=== PATIENT | male | born 1950 | race Caucasian/White ===

== ENCOUNTER → 2022-08-28 08:15 | Outpatient (BNVA) | payer OTHER, SELFPAY | PROVIDERS: PCP Family Medicine; Visit Provider Physician Assistant | DX: S82.51XA Displaced fracture of medial malleolus of right tibia, initial encounter for closed fracture (principal); W20.8XXA Other cause of strike by thrown, projected or falling object, initial encounter | CPT/HCPCS: 73610; 73630; 99203 ==

== ENCOUNTER 2022-09-04 14:50 | Outpatient (REF) | payer OTHER, SELFPAY ==
--- NOTE | ~2022-09-04 | XR_ITS ---
EXAMINATION: XR ANKLE, RIGHT CLINICAL INFORMATION: Fracture COMPARISON: Previous x-ray 08/28/2022 TECHNIQUE: AP, lateral, and mortise views of the right ankle. FINDINGS: There is a minimally displaced transverse fracture of the medial malleolus. This does not appear appreciably changed from 05/07/2023 exam. No other fracture. The ankle mortise is normal. There is adjacent soft tissue swelling. Small plantar calcaneal spur. XR/XR ankle RT min 3V IMPRESSION: No change in the minimally displaced transverse fracture of the medial malleolus.
== END 2022-09-04 14:51 | disposition home or self-care (01) ==
LOC: HO.HOSX 14:50
PROVIDERS: Visit Provider Physician Assistant
DX: S82.51XA Displaced fracture of medial malleolus of right tibia, initial encounter for closed fracture (principal)
CPT/HCPCS: 29405; 73610; 99202

== ENCOUNTER 2022-09-09 08:39 | Outpatient (REF) | payer OTHER, SELFPAY ==
--- NOTE | ~2022-09-09 | XR_ITS ---
EXAMINATION: XR ANKLE, RIGHT CLINICAL INFORMATION: Fracture COMPARISON: Previous x-ray 08/28/2022 TECHNIQUE: AP, lateral, and mortise views of the right ankle. FINDINGS: There is a transverse displaced fracture of the medial malleolus. This appears unchanged. No other fracture. The ankle mortise is normal. There is medial soft tissue swelling. There is an ankle joint effusion. There is faint soft tissue arterial calcification. XR/XR ankle RT min 3V IMPRESSION: Transverse displaced medial malleolar fracture.
== END 2022-09-09 08:40 | disposition home or self-care (01) ==
LOC: HO.HOSX 08:39
PROVIDERS: Visit Provider Physician Assistant
DX: S82.51XA Displaced fracture of medial malleolus of right tibia, initial encounter for closed fracture (principal)
CPT/HCPCS: 73610; 99212

== ENCOUNTER 2022-09-11 13:23 | Day surgery (SDC) | payer OTHER, SELFPAY ==
--- NOTE | 2022-09-10 08:46 | HO.ANESPROP2 ---
HPI - Anesthesia Eval Consult details Narrative: 72yo M for Right Ankle Fracture ORIF [facility] Active Problems Active Problems: All Active Problems (Updated 09/09/22 @ 08:48 by HELEN La) Displaced fracture of medial malleolus of right tibia (Acute) Past Medical History Medical History High cholesterol Surgical History Surgical History History of surgery on lower extremity Social History Social History Patient Tobacco Use Status: Former Tobacco user Quit Date: 16 years Current occupational status: retired [email or web address] Allergies Allergy/AdvReac Type Severity Reaction Status Date / Time No Known Allergies Allergy Verified 09/13/22 10:15 [No Known Allergies*] Home Medications Medication Instructions Recorded Confirmed Last Taken Type alprazolam 0.5 mg tablet 0.5 mg PO DAILY PRN Anxiety 09/09/22 09/11/22 Unknown History atorvastatin 20 mg tablet 20 mg PO DAILY 09/09/22 09/11/22 Unknown History mirtazapine 30 mg tablet 30 mg PO BEDTIME 09/09/22 09/11/22 Unknown History omeprazole 20 mg capsule,delayed 20 mg PO DAILY 09/09/22 09/11/22 Unknown History release Exam Exam Date and Time: September 10, 2022 0846 Assessment and Plan Assessment Anesthesia Assessment: Chart Reviewed
[2022-09-11] VITALS (8 sets, daily range): BP systolic 154–179; BP diastolic 76–88; PULSE 73–84; RESP 14–18; TEMP 36.1–36.8; O2SAT 93–98; BMI 25.8
--- NOTE | ~2022-09-11 | FL_ITS ---
EXAMINATION: XR FLUOROSCOPY WITH IMAGES CLINICAL INFORMATION: Medial malleoli fracture reduction. COMPARISON: Radiographs right ankle 09/09/2022 TECHNIQUE: Fluoroscopy Supervised By: Dr. Daljit Mares. Fluoroscopy Time: 0.1 minutes. Cumulative Dose: 0.35 mGy. Images: 1. FINDINGS: Medial malleolar fracture is reduced with screw. Hardware intact. There is near-anatomic alignment on this single projection. The ankle mortise appears symmetric. No joint narrowing. FL/FL guidance in OR IMPRESSION: Fluoroscopy for open reduction internal fixation medial malleolar fracture.
[2022-09-11] MEDS: Lactated Ringers 1,000 ML 100 ML IVCONT (14:03)
--- NOTE | 2022-09-11 14:55 | P.CONAN_ITS ---
[facility] Active Problems Active Problems: All Active Problems (Updated 09/09/22 @ 08:48 by Kenna Wheat [facility]) Displaced fracture of medial malleolus of right tibia (Acute) Past Medical History Medical History High cholesterol Surgical History Surgical History History of surgery on lower extremity Social History Social History Patient Tobacco Use Status: Former Tobacco user Quit Date: 16 years Use of substances other than those prescribed or required for medical reasons: Yes Are you DNR?: No Advance Directives: No Advance Directives Information Provided: Yes Current occupational status: retired [employer] Allergies Allergy/AdvReac Type Severity Reaction Status Date / Time No Known Allergies Allergy Verified 09/09/22 08:47 [No Known Allergies*] Active Medications: Current Medications Lactated Ringer's (Lr) 1,000 mls @ 100 mls/hr IVCONT .Q10H [facility] Last Admin: 09/11/22 14:03 Dose: 100 mls/hr Cefazolin Sodium/Dextrose (Ancef) 2 gm in 50 mls @ 100 mls/hr IV POSTOP [facility] Home Medications Medication Instructions Recorded Confirmed Last Taken Type alprazolam 0.5 mg tablet 0.5 mg PO DAILY PRN Anxiety 09/09/22 09/11/22 Unknown History atorvastatin 20 mg tablet 20 mg PO DAILY 09/09/22 09/11/22 Unknown History mirtazapine 30 mg tablet 30 mg PO BEDTIME 09/09/22 09/11/22 Unknown History omeprazole 20 mg capsule,delayed 20 mg PO DAILY 09/09/22 09/11/22 Unknown History release Exam Exam Date and Time: September 11, 2022 1455 Height,Weight and Vital Signs: Height 5 ft 6 in Weight 72.575 kg Last Vital Signs Temp 98.2 F 09/11/22 13:54 Pulse 84 09/11/22 13:54 Resp 18 09/11/22 13:54 BP 154/84 H 09/11/22 13:54 Pulse Ox 96 09/11/22 13:54 O2 Del Method Room Air 09/11/22 13:54 Airway Mallampati Class: II TM Dist: >3cm Neck ROM: Full Denture: Upper and Lower Heart: RRR Lungs: CTA Assessment and Plan Final Anesthetic Review ASA Class: II Final Preanesthetic Review: Meds/Allgs Chart Reviewed, Consent Obtained/Reviewed and Anes Risks/Benef Reviewed Patient Risk: Low Procedure Risk: Low Anesthetic Plan Anesthetic Plan: GA Disposition: Standard PACU
--- NOTE | 2022-09-11 15:10 | P.CONAN_ITS ---
[facility] Active Problems Active Problems: All Active Problems (Updated 09/09/22 @ 08:48 by Kenna Wheat [facility]) Displaced fracture of medial malleolus of right tibia (Acute) Past Medical History Medical History High cholesterol Family History Family history of problems with anesthesia: No Surgical History Surgical History History of surgery on lower extremity History of Problems with Anesthesia: No Social History Social History Patient Tobacco Use Status: Former Tobacco user Quit Date: 16 years Use of substances other than those prescribed or required for medical reasons: Yes Are you DNR?: No Advance Directives: No Advance Directives Information Provided: Yes Current occupational status: retired [employer] Allergies Allergy/AdvReac Type Severity Reaction Status Date / Time No Known Allergies Allergy Verified 09/09/22 08:47 [No Known Allergies*] Active Medications: Current Medications Lactated Ringer's (Lr) 1,000 mls @ 100 mls/hr IVCONT .Q10H [facility] Last Admin: 09/11/22 14:03 Dose: 100 mls/hr Cefazolin Sodium/Dextrose (Ancef) 2 gm in 50 mls @ 100 mls/hr IV POSTOP [facility] Home Medications Medication Instructions Recorded Confirmed Last Taken Type alprazolam 0.5 mg tablet 0.5 mg PO DAILY PRN Anxiety 09/09/22 09/11/22 Unknown History atorvastatin 20 mg tablet 20 mg PO DAILY 09/09/22 09/11/22 Unknown History mirtazapine 30 mg tablet 30 mg PO BEDTIME 09/09/22 09/11/22 Unknown History omeprazole 20 mg capsule,delayed 20 mg PO DAILY 09/09/22 09/11/22 Unknown History release Exam Exam Date and Time: September 11, 2022 1510 Height,Weight and Vital Signs: Height 5 ft 6 in Weight 72.575 kg Last Vital Signs Temp 98.2 F 09/11/22 13:54 Pulse 84 09/11/22 13:54 Resp 18 09/11/22 13:54 BP 154/84 H 09/11/22 13:54 Pulse Ox 96 09/11/22 13:54 O2 Del Method Room Air 09/11/22 13:54 Airway Mallampati Class: II TM Dist: >3cm Neck ROM: Full Denture: Upper and Lower Heart: RRR Lungs: CTA Assessment and Plan Final Anesthetic Review Family History of Problems with Anesthesia: No History of Problems with Anesthesia: No NPO: Yes ASA Class: II and Emergency Final Preanesthetic Review: Meds/Allgs Chart Reviewed, Consent Obtained/Reviewed and Anes Risks/Benef Reviewed Patient Risk: Low Procedure Risk: Low Anesthetic Plan Anesthetic Plan: GA Disposition: Standard PACU
--- NOTE | 2022-09-11 15:33 | MHC.SHP ---
Pre-Procedural Eval Section A Date of Service: 09/11/22 The patient is an INPATIENT: No Changes since office visit: No Cold of Flu in the past 2 weeks, No New Medical Problems, No Changes in Medication and No Patient answered all questions The History & Physical has been completed within 30 days and I have reviewed it.: Yes Section B Chief Complaint: Displaced fracture of medial malleolus of right ti Allergies: Allergies Allergy/AdvReac Type Severity Reaction Status Date / Time No Known Allergies Allergy Verified 09/09/22 08:47 [No Known Allergies*] Plan I have reviewed the history and physical and performed a pertinent physical examination on my patient. No changes have occurred unless specified. Time Spent With Patient Time: Total time managing care of this patient today ____ minutes.
--- NOTE | 2022-09-11 17:01 | P.BOP_ITS ---
Brief Operative Note Date of Service: 09/11/22 Pre-op diagnosis: Right medial malleolus ankle fracture Post-op diagnosis: same Procedure: ORIF right medial mal Implants: [place] 4.0 cannulated parttially threaded cancellous screws x 2 Surgeon: Daljit Mares MD Anesthesia: GETA, GLMA and local Was an Cork Tipper used for this Procedure?: No Estimated blood loss (mL): 5 Tourniquet time (min): 20 IV fluids (mL): 800 Pathology: none sent Condition: stable Disposition: PACU
[2022-09-11] MEDS: Acetaminophen 1,000 MG/100 ML PIGGYBACK 400 MG IV (17:16)
--- NOTE | 2022-09-17 07:31 | P.OP_ITS ---
Operative Note Operative Note Date of Service: 09/17/22 Narrative: Date of Service: 09/11/22 Pre-op diagnosis: Right medial malleolus ankle fracture Post-op diagnosis: same Procedure: ORIF right medial mal Implants: [place] 4.0 cannulated parttially threaded cancellous screws x 2 Surgeon: Daljit Mares MD Anesthesia: GETA, GLMA and local Was an Qa Architect used for this Procedure?: No Estimated blood loss (mL): 5 Tourniquet time (min): 20 IV fluids (mL): 800 Pathology: none sent Condition: stable Disposition: PACU Procedure in detail: Patient was brought to the operating room and placed supine on the operative table. All bony prominences were well padded and a time-out was called to identify proper site proper procedure proper surgeon. IV antibiotics per weight were administered. I began by exsanguinating limb is slightly tourniquet to 300 mm Hg. I then made a standard curvilinear incision over the medial malleolus.Full-thickness skin flaps were developed. THe fracture was irrigated and cleaned and then, using a sharp tenaculum, the fracture was reduced. 2 threaded K-wires were then placed from distal to proximal and perpendicular to the fracture. Biplanar fluoroscopy was used to confirm positioning and then they were overdrilled and 2 40 mm 4.0 partially-threaded cannulated cancellous screws were placed across the fracture. I was satisfied with the position and the fracture reduction based on biplanar fluoroscopy. This syndesmosis was tested using external rotation test and was found to be stable. Therefore all instrumentation was removed and copious irrigation was performed. Absorbable suture and jaun were used for closure and the patient was placed into sterile dressings and a well-padded posterior splint. Tourniquet was let down and the patient was extubated brought to recovery room in stable condition there were no known complications.
== END 2022-09-11 18:12 | disposition home or self-care (01) ==
LOC: HO.SSS 13:24
PROVIDERS: PCP Family Medicine; Visit Provider Orthopaedic Surgery
PROC: (CPT 27766; principal; 2022-09-11 16:10)
DX: S82.51XA Displaced fracture of medial malleolus of right tibia, initial encounter for closed fracture (principal); M25.571 Pain in right ankle and joints of right foot; W22.8XXA Striking against or struck by other objects, initial encounter; Y93.9 Activity, unspecified; Y92.69 Other specified industrial and construction area as the place of occurrence of the external cause; Y99.8 Other external cause status; E78.00 Pure hypercholesterolemia, unspecified; Z87.891 Personal history of nicotine dependence; Z79.899 Other long term (current) drug therapy
CPT/HCPCS: 27766; C1713; J0690; J1100; J2250; J2405; J2795; J3010

== ENCOUNTER → 2022-09-13 10:03 | Outpatient (BNVA) | payer OTHER, SELFPAY | PROVIDERS: PCP Family Medicine; Visit Provider Physician Assistant | DX: Z13.89 Encounter for screening for other disorder (principal) ==

== ENCOUNTER 2022-09-19 10:18 | Outpatient (REF) | payer OTHER, SELFPAY ==
--- NOTE | ~2022-09-19 | XR_ITS ---
EXAMINATION: XR ANKLE, RIGHT CLINICAL INFORMATION: Fracture COMPARISON: Previous x-ray and fluoroscopy August 2022 TECHNIQUE: AP, lateral, and mortise views of the right ankle. FINDINGS: There are 2 screws transfixing the medial malleolar fracture. Alignment is unchanged. No other fracture is seen. The ankle normal. There are overlying jaun. XR/XR ankle RT min 3V IMPRESSION: ORIF medial malleolar fracture.
== END 2022-09-19 10:19 | disposition home or self-care (01) ==
LOC: HO.HOSX 10:18
PROVIDERS: Visit Provider Physician Assistant
DX: S82.51XD Displaced fracture of medial malleolus of right tibia, subsequent encounter for closed fracture with routine healing (principal); X58.XXXD Exposure to other specified factors, subsequent encounter; Z98.890 Other specified postprocedural states
CPT/HCPCS: 29405; 73610

== ENCOUNTER 2022-10-18 07:28 | Outpatient (REF) | payer OTHER, SELFPAY ==
--- NOTE | ~2022-10-18 | XR_ITS ---
EXAMINATION: XR ANKLE, RIGHT CLINICAL INFORMATION: Right ankle pain COMPARISON: 09/19/2022 TECHNIQUE: AP, lateral, and mortise views of the right ankle. FINDINGS: Patient is status post placement of 2 compression screws is transfixing fracture of the medial malleolus. There is osteopenia seen surrounding sclerosis medially fragments are anatomically aligned. Ankle mortise is preserved. No other fractures are identified. XR/XR ankle RT min 3V IMPRESSION: ORIF in place with demineralization seen medially
== END 2022-10-18 07:29 | disposition home or self-care (01) ==
LOC: HO.HOSX 07:28
PROVIDERS: Visit Provider Physician Assistant
DX: S82.51XD Displaced fracture of medial malleolus of right tibia, subsequent encounter for closed fracture with routine healing (principal)
CPT/HCPCS: 73610

== ENCOUNTER → 2022-11-01 11:15 | Outpatient (BNVA) | payer OTHER, MEDICARE, SELFPAY | PROVIDERS: PCP Family Medicine; Visit Provider Physician Assistant ==

== ENCOUNTER 2022-11-25 11:09 | Outpatient (REF) | payer OTHER, SELFPAY ==
--- NOTE | ~2022-11-25 | XR_ITS ---
EXAMINATION: XR ANKLE, RIGHT CLINICAL INFORMATION: Pain COMPARISON: 11/17/2022 TECHNIQUE: AP, lateral, and mortise views of the right ankle. FINDINGS: 2 cortical screws are again seen to the medial malleolus. No evidence for hardware failure. The previously noted medial malleolus fracture is less discrete consistent with progressive interval healing. Mild soft tissue swelling. XR/XR ankle RT min 3V IMPRESSION: Progressive interval healing of the medial malleolus fracture with [address]. No evidence for hardware failure.
== END 2022-11-25 11:10 | disposition home or self-care (01) ==
LOC: HO.HOSX 11:09
PROVIDERS: Visit Provider Physician Assistant
DX: S82.51XD Displaced fracture of medial malleolus of right tibia, subsequent encounter for closed fracture with routine healing (principal); X58.XXXD Exposure to other specified factors, subsequent encounter
CPT/HCPCS: 73610

== ENCOUNTER 2022-11-25 13:06 | Outpatient (AMB) | payer OTHER, SELFPAY ==
--- NOTE | 2022-11-25 13:09 | MHC.OFFVIS ---
Intake Vital Signs 11/25/22 13:16 Height 5 ft 6 in Weight 160 lb BMI 25.8 Intake Visit Reasons: OV - RT ankle ORIF, 09/11/22 NE Intake Note: Bulmaro is a 72 year old male who presents today for a follow up s/p RT ankle ORIF on 09/11/22 NE. Patient reports some soreness when he walks with the boot. He states PT is going well. Denies numbness and tingling. Allergies No Known Allergies [No Known Allergies*] Allergy (Verified 11/25/22 13:09) HPI OV - RT ankle ORIF, 09/11/22 NE HPI Details 72-year-old male who presents in the office today 2 months status post right ankle medial malleolus ORIF, which was performed on 09/11/[address] Mares. The patient reports some soreness when ambulating with the boot. He confirms participating in physical therapy and states it is going well. He denies numbness or tingling. PFSH Medical History High cholesterol Surgical History History of surgery on lower extremity Social History Patient Tobacco Use Status: Former Tobacco user Quit Date: 16 years Current occupational status: retired Review of Systems Const All systems reviewed & are unremarkable except as noted in HPI and below Physical Exam Vital Signs: BMI result Body Mass Index 25.8 Const General: cooperative and no acute distress Orientation/consciousness: patient oriented x3 Resp Effort & Inspection: normal respiratory effort and able to speak in complete sentences Cardio Peripheral pulses: Peripheral pulses 2+ throughout Neuro General: patient oriented x3 Extrem Other: Right ankle: Normal to inspection. No ecchymosis, erythema, or edema. Full ankle ROM in all planes without any deficits. Negative anterior drawer. Sensation intact. Pedal pulse intact. Psych Mental Status: mental status grossly normal Assessment & Plan Assessment & Plan (1) Displaced fracture of medial malleolus of right tibia: Comment: right ankle medial malleolus ORIF 09/11/2022 NE Code(s): S82.51XA - Displaced fracture of medial malleolus of right tibia, initial encounter for closed fracture Plan Mr. Dailey is a 72-year-old male who presents in the office today 2 months status post right ankle medial malleolus ORIF, which was performed on 09/11/[address] Mares. The patient reports some soreness when ambulating with the boot. He confirms participating in physical therapy and states it is going well. He denies numbness or tingling. The patient will begin to wean out of boot at this time. He will continue to work with physical therapy on ROM and strengthening. He is anxious to return to work. 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 Follow up will be in 3 weeks, or sooner if needed. X-rays of the right ankle which were obtained while in the office today and were reviewed by me, Raquel Hart PA-C, revealed routine healing with intact orthopedic hardware medial malleolus right ankle. Orders: Orders XR ankle RT min 3V Today M25.579 - Pain in unspecified ankle and joints of unspecified foot Patient Instructions: Scribed for Raquel Hart PA-C by Hiwot Foote medical records clerk, on 11/25/2022 at 1:09 pm, EST. Your attestation Coding Level of Care Code Global (28068) Diagnoses Displaced fracture of medial malleolus of right tibia S82.51XA
[2022-11-25 13:16] VITALS: BMI 25.8
== END 2022-11-25 13:46 | disposition home or self-care (01) ==
PROVIDERS: PCP Family Medicine; Visit Provider Physician Assistant
DX: S82.51XA Displaced fracture of medial malleolus of right tibia, initial encounter for closed fracture (principal)
CPT/HCPCS: 99024

== ENCOUNTER 2022-12-16 07:00 | Outpatient (RCR) | payer OTHER, MEDICARE, SELFPAY ==
--- NOTE | 2022-12-16 09:13 | MHC.PT.OD ---
[facility] [place] [facility] [place] [facility] [place] [facility] [address] Tom Fuchs [address] [phone] F: [phone] F: [phone] F: [phone] F: [phone] Physical Therapy Daily Note Diagnosis: S82.51XA Displaced fracture of the medial malleolus of the right tibia, initial encounter for closed fracture, DOS 09/11/22 ROM, gentle strength, proprioceptive training signed by Queta Flores, date of script 10/18/22 Date of Surgery: 09/11/22 Date of Evaluation: 11/01/22 Date of Treatment: 12/16/22 Treatments to Date: Cancellations to Date: No Shows to Date: Authorized Visits: 12 Insurance End Date: Precautions/ Contraindications:WBAT R LE in boot, must have boot for weight-bearing Pre op: Displaces fracture of medial malleolus, closed fracture Subjective: Pt to see ortho tomorrow for follow up, reports he walked 1.5 miles with dog, 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 Pain Score and Location: 0 Objective Flowsheet: Tests & Measures Exercises Seated SCI-FIT bike level twin peaks program level 5.0 x 10 minutes Wobble board weight shifts laterally, fwd/bkwd, x 2 sets 10R, BOSU board blue side up x 2 sets 10R fwd and lateral step-ups x 2 sets 10R, step-down x 2 sets 10R with R LE on the BOSU, fwd step down from BOSU x 2 sets 10R, wobble board weight shifts fwd/bkwd x 2 sets 10R, x 2 minutes each direction, review of 4 way ankle hip, seated ankle DF stretch x 10 sec hold x 5R, step-down from 6 inch step x 3 sets 10R, wobble board weight shifts laterally, step-up onto airex fwd and laterally x 2 sets 10R, half kneeling on airex for med ball reaches on the floor x fwd /laterally/ side/ 10R, heel raise up with two, down with 2, up with two, down with L LE first x 2 sets 10R. PROM for R ankle, STM to gastroc soleus complex pre-activity in effort to improve tissue extensibility. PAOLO Garcia [id number] Office Visit Report Signed Patient: Bulmaro DaileyMR#: [id number] : 2Acct:[id number] Age/Sex: 72 / MADM/SER Date: 11/25/22 Loc: HO.HOSADM/SER Time:1306 Attending Provider: Raquel Hart PA-C cc: Cruz Gresham MD~ Intake Vital Signs 11/25/22 13:16 Height 5 ft 6 in Weight 160 lb BMI 25.8 Intake Visit Reasons: OV - RT ankle ORIF, 09/11/22 NE Intake Note: Bulmaro is a 72 year old male who presents today for a follow up s/p RT ankle ORIF on 09/11/22 NE. Patient reports some soreness when he walks with the boot. He states PT is going well. Denies numbness and tingling. Allergies No Known Allergies [No Known Allergies*] Allergy (Verified 11/25/22 13:09) HPI OV - RT ankle ORIF, 09/11/22 NE HPI Details 72-year-old male who presents in the office today 2 months status post right ankle medial malleolus ORIF, which was performed on 09/11/[address] Mares. The patient reports some soreness when ambulating with the boot. He confirms participating in physical therapy and states it is going well. He denies numbness or tingling. PFSH Medical History High cholesterol Surgical History History of surgery on lower extremity Social History Patient Tobacco Use Status: Former Tobacco user Quit Date: 16 years Current occupational status: retired Review of Systems Const All systems reviewed & are unremarkable except as noted in HPI nd below Physical Exam Vital Signs: BMI result Body Mass Index 25.8 Const General: cooperative and no acute distress Orientation/consciousness: patient oriented x3 Resp Effort & Inspection: normal respiratory effort and able to speak in complete sentences Cardio Peripheral pulses: Peripheral pulses 2+ throughout Neuro General: patient oriented x3 Extrem Other: Right ankle: Normal to inspection. No ecchymosis, erythema, or edema. Full ankle ROM in all planes without any deficits. Negative anterior drawer. Sensation intact. Pedal pulse intact. Psych Mental Status: mental status grossly normal Assessment & Plan Assessment & Plan (1) Displaced fracture of medial malleolus of right tibia: Comment: right ankle medial malleolus ORIF 09/11/2022 NE Code(s): S82.51XA - Displaced fracture of medial malleolus of right tibia, initial encounter for closed fracture Plan Mr. Dailey is a 72-year-old male who presents in the office today 2 months status post right ankle medial malleolus ORIF, which was performed on 09/11/[address] Mares. The patient reports some soreness when ambulating with the boot. He confirms participating in physical therapy and states it is going well. He denies numbness or tingling. The patient will begin to wean out of boot at this time. He will continue to work with physical therapy on ROM and strengthening. He is anxious to return to work. 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 Follow up will be in 3 weeks, or sooner if needed. X-rays of the right ankle which were obtained while in the office today and were reviewed by me, Raquel Hart PA-C, revealed routine healing with intact orthopedic hardware medial malleolus right ankle. Orders: Orders XR ankle RT min 3V Today M25.579 - Pain in unspecified ankle and joints of unspecified foot Patient Instructions: Scribed for Raquel Hart PA-C by Hiwot Foote product manager medical device, on 11/25/2022 at 1:09 pm, EST. Your attestation Coding Level of Care Code Global (38101) Diagnoses Displaced fracture of medial malleolus of right tibia S82.51XA Documented By:Raquel Hart11/25/22 1309 Signed By:<Electronically signed by Raquel Hart>11/25/22 1530 Modalities Pt deferred need of ice. Pt educated/encouraged he can perform Assessment: 12/16/22: Pt has demonstrated good tolerance/response to therapy. Some mild stiffness in end range DF improved post stretches. Pt is able to negotiate stairs, complete dynamic wobble board/BAPS/BOSU task in the office with very minimal if at all type of symptom. Pt is eager to RTW, will have orthopedic follow up tomorrow. Pt expressed he walked 2.5 miles between mowing his lawn and walking his dog yesterday. He reports trialing use of construction boot on in prep for work and has used a step ladder at home with good tolerance. Pt has been issued a HEP and has good understanding of home program with good compliance reported. Tentative D/C to I HEP this date. Await clearance for RTW. 12/09/22: Pt demonstrating good tolerance for all activities, mild discomfort reported with BOSU activities. 12/02/22: Some ache reports medial aspect of ankle today. Pt requires UE support for step-down. He expresses some hesitation and soreness with crouching (unable to perform end range). 11/29/22: Pt challenged with 6 inch step downs. Pt encouraged to perform AAROM DF stretch frequently through the day. Pt deferred ice to home. 11/26/22: Pt presents to office has been cleared to wean from walking boot, (presents in sneaker to PT today, drove himself to PT, first time driving since clearance to wean from boot). Pt expressing some mild soreness in ankle post session. Greatest challenged was reported with step-downs, VC's to reduce hip ER. Pt to see ortho in 3 weeks. 11/22/22: Pt awaiting follow up with orthopedics (11/25/22 ? clearance to wean from boot at that time. Pt expressing he has been walking to the bathroom at night with short distances independent of boot, denies pain. Pt encouraged to use boot for ambulation until ortho MD clearance is given to D/C boot. Pt remains OOW. Pt does express concern about heavy lifting which is required in his job. 11/20/22 STARTED SEATED BIKE SLOW PACE (NO TURN ON OF SCREEN) WITHOUT BOOT, WITHOUT C/O PAIN PT Plan: DOS 09/11/22 ROM, gentle strength, proprioceptive training signed by Queta Flores, date of script 10/18/22 Short Term Goals: 1. Demonstrate symmetrical ROM of the R LE compared to the left. 2. Strength R ankle 4/5 globally. 3. Ambulate community distances MOD I with use of walking boot with good dynamic balance. 4. Complete household tasks MOD I 5. Demonstrate self care/ I HEP. Toys Inspector Goals: 1. RTW full duty with least restrictive AD MOD I. 2. Negotiate a flight of stairs reciprocally with good dynamic balance. 3. Resume lawn care MOD I with no walking boot on uneven terrain. 4. Strength global R ankle 5/5 all planes. 5. Resume recreational walking MOD I with no pain >2/10 R ankle. 6. I HEP/self care program. Electronically signed by: Zenaida Arriola, PT, DPT
== END 2023-05-06 10:56 | disposition home or self-care (01) ==
LOC: HO.PTWFD 07:00
PROVIDERS: Visit Provider Physician Assistant
DX: S82.51XD Displaced fracture of medial malleolus of right tibia, subsequent encounter for closed fracture with routine healing (principal)
CPT/HCPCS: 97110; 97140; 97162; 97535

== ENCOUNTER 2022-12-17 10:07 | Outpatient (AMB) | payer OTHER, SELFPAY ==
--- NOTE | 2022-12-17 10:09 | A.OFFVIS_ITS ---
Intake Intake Visit Reasons: OV - RT ankle ORIF, 09/11/22 NE Intake Note: Bulmaro is a 72 year old male who presents today for a follow up s/p RT ankle ORIF on 09/11/22 NE. Patient reports no pain or discomfort. PT went well and it helped him improve his ROM. No other concerns. Allergies No Known Allergies [No Known Allergies*] Allergy (Verified 12/17/22 10:12) HPI OV - RT ankle ORIF, 09/11/22 NE HPI Details 72-year-old male who presents in the office today 3 months status post right ankle medial malleolus ORIF, which was performed on 09/11/[address] Mares. The patient reports no pain or discomfort while in the office today. He states physiatry therapy went well and helped with his ROM. He states he has no other concerns. [facility] Medical History High cholesterol Surgical History History of surgery on lower extremity Social History Patient Tobacco Use Status: Former Tobacco user Quit Date: 16 years Current occupational status: retired Review of Systems Const All systems reviewed & are unremarkable except as noted in HPI and below Physical Exam Const General: cooperative, healthy appearing and no acute distress Resp Effort & Inspection: normal respiratory effort and able to speak in complete sentences Cardio Rate: regular rate Peripheral pulses: Peripheral pulses 2+ throughout GI Palpation (GI): Soft to palpation Skin Lesions: no lesions Rashes: no rashes Extrem Other: Right ankle: Normal to inspection. No ecchymosis, erythema, or edema. Patient is able to demonstrate dorsiflexion, plantar flexion, pronation and supination. Negative anterior drawer. Sensation intact. Pedal Pulse intact. Assessment & Plan Assessment & Plan (1) Displaced fracture of medial malleolus of right tibia: Comment: right ankle medial malleolus ORIF 09/11/2022 NE Code(s): S82.51XA - Displaced fracture of medial malleolus of right tibia, initial encounter for closed fracture Plan Mr. Dailey is a 72-year-old male who presents in the office today 3 months status post right ankle medial malleolus ORIF, which was performed on 09/11/[address] Mares. The patient reports no pain or discomfort while in the office today. He states physiatry therapy went well and helped with his ROM. He states he has no other concerns. 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 He would like to follow up with Dr. Mares one more time to discuss the potential to any permanent disability. Follow up will be with Dr. Mares, or sooner if needed. Patient Instructions: Scribed for Raquel Hart PA-C by Hiwot Foote medical radiation dosimetrist, on 12/17/2022 at 10:09 am, EST. Your attestation Coding Level of Care Code Est Pt Level 3 (14525) Diagnoses Displaced fracture of medial malleolus of right tibia S82.51XA
== END 2022-12-17 10:28 | disposition home or self-care (01) ==
PROVIDERS: PCP Family Medicine; Visit Provider Physician Assistant
DX: S82.51XD Displaced fracture of medial malleolus of right tibia, subsequent encounter for closed fracture with routine healing (principal)
CPT/HCPCS: 99213

== ENCOUNTER → 2022-12-17 10:07 | Outpatient (BNVA) | payer OTHER, SELFPAY | PROVIDERS: PCP Family Medicine; Visit Provider Physician Assistant | DX: S82.51XA Displaced fracture of medial malleolus of right tibia, initial encounter for closed fracture (principal); W20.8XXA Other cause of strike by thrown, projected or falling object, initial encounter; Y93.H3 Activity, building and construction; Y92.69 Other specified industrial and construction area as the place of occurrence of the external cause; Y99.0 Civilian activity done for income or pay; Z96.661 Presence of right artificial ankle joint; Z47.89 Encounter for other orthopedic aftercare | CPT/HCPCS: 99212 ==

== ENCOUNTER 2023-01-03 09:46 | Outpatient (REF) | payer OTHER, SELFPAY | END 2023-01-03 09:47 | disposition home or self-care (01) | LOC: HO.HOSX 09:46 | PROVIDERS: Visit Provider Orthopaedic Surgery | DX: Z13.89 Encounter for screening for other disorder (principal) ==

== ENCOUNTER 2023-04-17 09:33 | Outpatient (AMB) | payer OTHER, SELFPAY ==
--- NOTE | 2023-04-17 09:36 | A.OFFVIS_ITS ---
Intake Intake Visit Reasons: OV - RT ankle ORIF, 09/11/22 NE Intake Note: Bulmaro is a 72 year old male who presents today for a follow up s/p RT ankle ORIF on 09/11/22 NE. Patient reports that he is having good and bad days. At work he is required to walk on roofs and climb ladders. Allergies No Known Allergies [No Known Allergies*] Allergy (Verified 12/17/22 10:12) HPI OV - RT ankle ORIF, 09/11/22 NE HPI Details Bulmaro is a 73 year old man who presents ~7 months S/P right ankle ORIF. He says he is doing well overall, and has both good & bad days. 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 He has pain and is unable to walk his dog like he did before the surgery. Most of pain is over that anteromedial ankle. [facility] Medical History High cholesterol Surgical History History of surgery on lower extremity Social History Patient Tobacco Use Status: Former Tobacco user Quit Date: 16 years Current occupational status: retired Review of Systems Const All systems reviewed & are unremarkable except as noted in HPI and below Physical Exam Const General: no acute distress, alert and awake Orientation/consciousness: patient oriented x3 HEENT Head: Yes normocephalic and Yes atraumatic Eyes EOM: EOMs intact bilaterally Resp Effort & Inspection: normal respiratory effort and able to speak in complete sentences Cardio Jugular venous distension: no JVD Skin General skin exam: turgor normal Rashes: no rashes Neuro General: patient oriented x3 Extrem Other: Right Ankle: 5 degrees of dorsiflexion 50 degrees of plantar flexion mild tenderness over the anteromedial joint with no effusion. Stable anterior drawer. Mild pain with resisted eversion. Well-healed incision Psych Appearance: grossly normal Affect: normal affect Attitude: cooperative Assessment & Plan Assessment & Plan (1) Displaced fracture of medial malleolus of right tibia: Comment: right ankle medial malleolus ORIF 09/11/2022 NE Code(s): S82.51XA - Displaced fracture of medial malleolus of right tibia, initial encounter for closed fracture Plan: This is a 73 year old man S/P right medial malleolus ORIF, DOS: 09/11/22. Overall he is doing well but still with some discomfort while he is working and twisting and his ambulatory capacity is not back to what it was before the injury. 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 Would like to see him back in 3 months for a eval. I also gave him a lace-up ankle brace and recommended stretching and strengthening exercises. Coding Level of Care Code Est Pt Level 4 (17217) Diagnoses Displaced fracture of medial malleolus of right tibia S82.51XA
== END 2023-04-17 10:27 | disposition home or self-care (01) ==
PROVIDERS: PCP Family Medicine; Visit Provider Orthopaedic Surgery
DX: S82.51XA Displaced fracture of medial malleolus of right tibia, initial encounter for closed fracture (principal)
CPT/HCPCS: 99213

== ENCOUNTER → 2023-04-17 09:33 | Outpatient (BNVA) | payer OTHER, SELFPAY | PROVIDERS: PCP Family Medicine; Visit Provider Orthopaedic Surgery | DX: S82.51XD Displaced fracture of medial malleolus of right tibia, subsequent encounter for closed fracture with routine healing (principal) | CPT/HCPCS: 99212 ==

== ENCOUNTER 2023-07-18 09:07 | Outpatient (AMB) | payer OTHER, SELFPAY ==
[2023-07-18 09:13] VITALS: BMI 30.7
--- NOTE | 2023-07-18 09:13 | A.OFFVIS_ITS ---
Intake Vital Signs 07/18/23 09:13 Height 5 ft 6 in Weight 190 lb BMI 30.7 Intake Visit Reasons: OV - RT ankle ORIF, 09/11/22 NE-follow up Intake Note: Bulmaro is a 72 year old male who presents today for a follow up s/p RT ankle ORIF on 09/11/22 NE. 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 Currently states he has mild pain. Xrays updated in office. Allergies No Known Allergies [No Known Allergies*] Allergy (Verified 07/18/23 09:13) HPI OV - RT ankle ORIF, 09/11/22 NE-follow up HPI Details Bulmaro is a 73 year old man who presents ~10 months S/P right ankle ORIF. He is here to assess his function & if he has reached MMI. At his last appointment he was given a lace-up ankle brace and told to work on ankle strengthening exercises. 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 He says he is doing well but has some mild pain. he is able to walk more comfortably than he was a few months ago, which he is happy about. [facility] Medical History High cholesterol Surgical History History of surgery on lower extremity Social History Patient Tobacco Use Status: Former Tobacco user Quit Date: 16 years Current occupational status: retired Review of Systems Const All systems reviewed & are unremarkable except as noted in HPI and below Physical Exam Vital Signs: BMI result Body Mass Index 30.7 Const General: no acute distress, alert and awake Orientation/consciousness: patient oriented x3 HEENT Head: Yes normocephalic and Yes atraumatic Eyes EOM: EOMs intact bilaterally Resp Effort & Inspection: normal respiratory effort and able to speak in complete sentences Cardio Jugular venous distension: no JVD Skin General skin exam: turgor normal Rashes: no rashes Neuro General: patient oriented x3 Extrem Other: There is mild tenderness over the medial malleolus. There is no ankle effusion. There is subjective mild stiffness with terminal dorsiflexion Psych Appearance: grossly normal Affect: normal affect Attitude: cooperative Results Reviewed Results Reviewed: I personally reviewed relevant radiographs. Healed stable medial malleolar fracture with hardware intact with no hardware complications. Assessment & Plan Assessment & Plan (1) Displaced fracture of medial malleolus of right tibia: Comment: right ankle medial malleolus ORIF 09/11/2022 NE Code(s): S82.51XA - Displaced fracture of medial malleolus of right tibia, initial encounter for closed fracture Plan: Bulmaro is 73-year-old gentleman status post ORIF right medial malleolar fracture. He has healed and has reached maximum medical improvement. There is no further intervention warranted. He has returned to full duty work and may continue to do so. Plan Prepared for Daljit Mares MD by Sher Lujan, medical technologist clinical, on 07/18/23 at 9:24 AM, EST. Orders: Orders XR ankle RT min 3V 07/18/23 M25.579 - Pain in unspecified ankle and joints of unspecified foot Coding Level of Care Code Est Pt Level 3 (48420) Diagnoses Displaced fracture of medial malleolus of right tibia S82.51XA
== END 2023-07-18 09:49 | disposition home or self-care (01) ==
PROVIDERS: PCP Family Medicine; Visit Provider Orthopaedic Surgery
DX: S82.51XA Displaced fracture of medial malleolus of right tibia, initial encounter for closed fracture (principal)
CPT/HCPCS: 99213

== ENCOUNTER 2023-07-18 09:07 | Outpatient (REF) | payer OTHER, SELFPAY ==
--- NOTE | ~2023-07-18 | XR_ITS ---
EXAMINATION: XR ANKLE, RIGHT CLINICAL INFORMATION: Pain in unspecified ankle and joints of unspecified foot COMPARISON: Right ankle 11/25/2022 TECHNIQUE: AP, lateral, and mortise views of the right ankle. FINDINGS: 2 cortical screws are again seen within the medial malleolus. No evidence of hardware failure. The previously noted medial malleolar fracture is not appreciated suggestive of progressive interval healing. No fracture. Alignment is anatomic. Joint spaces are maintained. XR/XR ankle RT min 3V IMPRESSION: Progressive interval healing of the medial malleolar fracture with [address]. No evidence of hardware failure.
== END 2023-07-18 09:08 | disposition home or self-care (01) ==
LOC: HO.HOSX 09:07
PROVIDERS: Visit Provider Orthopaedic Surgery
DX: S82.51XA Displaced fracture of medial malleolus of right tibia, initial encounter for closed fracture (principal)
CPT/HCPCS: 73610; 99212